=== PATIENT | female | born 1960 | race Caucasian/White ===

== ENCOUNTER 2020-11-18 19:55 | Emergency (ER) | payer OTHER ==
[~2020-11-18] VITALS: Ht 167.6 cm; Wt 62.1 kg
[2020-11-18] MEDS ORDERED: IBUPROFEN 600 MG TABLET PO ONE (22:30)
[2020-11-18] MEDS ORDERED: IBUP-1955 PO (22:43)
[2020-11-18] MEDS ORDERED: IBUPROFEN 600 MG TABLET ONE (22:49)
--- NOTE | 2020-11-18 23:12 | NUR ---
Patient discharged to home in stable condition. Written and verbal after care instructions given. Patient verbalizes understanding of instructions. Stressed follow up or return to ER for worsening s/s. NAD. VSS. Steady gait. All belongings taken.
[2020-11-18 23:22] VITALS: BP 139/78
== END 2020-11-18 23:00 | disposition home or self-care (01) ==
LOC: ER 19:58
DX: S63.602A Unspecified sprain of left thumb, initial encounter (principal); W10.9XXA Fall (on) (from) unspecified stairs and steps, initial encounter; Y92.89 Other specified places as the place of occurrence of the external cause; F17.210 Nicotine dependence, cigarettes, uncomplicated
CPT/HCPCS: 73130; A4663